=== PATIENT | male | born 1960 ===

== ENCOUNTER → 2016-11-27 | Outpatient (CLI) | payer MEDICARE ==
[~2016-11-27] MED LIST: AMBIEN10 MG PO; ASPIR 8181 MG PO; DESYREL50 MG PO; FLEXERIL10 MG PO; IMITREX50 MG PO; LITHIUM CARBON300 MG PO; NICODERM (HABIT14 MG TOP; PAXIL20 MG PO; REQUIP0.25 MG PO; REQUIP2 MG; REQUIP2 MG PO; STRATTERA40 MG PO; TENORMIN25 MG PO; TENORMIN50 MG PO; VIIBRYD40 MG PO; XANAX0.25 M1 PO
== END ==
LOC: LFPA 12:22
DX: Z87.898 Personal history of other specified conditions (principal)